=== PATIENT | male | born 1990 | race African-American/Black ===

== ENCOUNTER → 2019-04-09 | Emergency (ER) | payer SELFPAY | END | disposition home or self-care (01) | LOC: ER 22:43 | DX: S69.90XA Unspecified injury of unspecified wrist, hand and finger(s), initial encounter (principal); Z53.21 Procedure and treatment not carried out due to patient leaving prior to being seen by health care provider; X58.XXXA Exposure to other specified factors, initial encounter; Y93.89 Activity, other specified; Y92.89 Other specified places as the place of occurrence of the external cause; Y99.8 Other external cause status ==

== ENCOUNTER 2019-04-17 06:52 | Emergency (ER) | payer OTHER ==
[~2019-04-17] VITALS: Ht 188 cm; Wt 76.0 kg
[2019-04-17 07:06] VITALS: BP 117/61
== END 2019-04-17 11:21 | disposition home or self-care (01) ==
LOC: ER 06:52
DX: Z48.02 Encounter for removal of sutures (principal); L03.114 Cellulitis of left upper limb; T81.49XA Infection following a procedure, other surgical site, initial encounter; F17.200 Nicotine dependence, unspecified, uncomplicated
CPT/HCPCS: 99283